=== PATIENT | female | born 1975 | race Caucasian/White ===

== ENCOUNTER 2022-03-12 17:06 | Inpatient (IN) ==
[2022-03-12] MEDS ORDERED: MORPHINE 2 MG/1 ML SYRINGE IV STA (19:41)
[2022-03-12] MEDS ORDERED: SODIUM CHLORIDE 0.9% 1,000 ML IV STA (19:41)
[2022-03-12] MEDS ORDERED: VANCOMYCIN INJ 1,250 MG in SODIUM CHLORIDE 0.9% 250 ML IV STA (19:41)
[2022-03-12] MEDS ORDERED: PIPERACILLIN/TAZOBACTAM 4.5 MG in SODIUM CHLORIDE 0.9% 100 ML IV STA (19:43)
[2022-03-12] MEDS ORDERED: PIPERACILLIN/TAZOBACTAM 4,500 MG in SODIUM CHLORIDE 0.9% 100 ML IV STA (19:52)
[2022-03-12 21:08] LABS: Urine Appearance Clear (Clear); Urine Color Yellow (Yellow)
[2022-03-12 21:09] LABS: Bilirubin,Urine Negative (Negative); Blood, Urine Negative (Negative); Glucose,Urine (UA) 500 mg/dL (Negative); Ketones,Urine Negative (Negative); Nitrite,Urine Negative (Negative); Protein,Urine Negative (Negative); Urine Specific Gravity 1.025 (1.001-1.035); Urine Urobilinogen 0.2 eU/dL (<2.0); Urine pH 5.5 (4.5-8.0)
[2022-03-12 21:14] LABS: Bacteria,Urine Occasional /HPF (Few); Mucus,Urine Occasional /LPF (Occasional); RBC,Urine 1 /HPF (0-4); Squamous Epithelial Cell,Urine Occasional /HPF (0-10)
[2022-03-12 21:31] LABS: Basophils % 0.4 % (0.0-0.8); Eosinophils # 0.7 10*3/uL (0.0-0.87); Eosinophils % 8.8 % (0.00-10.9); Hematocrit 38.1 VOL% (35.7-47.0); Hemoglobin 12.5 GM/DL (12.0-16.0); Immature Granulocytes % 0.8 %; Immature Granulocytes Absolute 0.06 #; Lymphocytes # 1.6 10*3/uL (1.4-4.0); Lymphocytes % 20.2 % (21.3-54.2); Mean Corpuscular HGB Conc 32.8 GM/DL (32-36); Mean Corpuscular Volume 91.6 FL (87-102); Mean Platelet Volume 9.2 FL (9.6-12.0); Monocytes # 0.9 10*3/uL (0.11-0.8); Monocytes % 10.9 % (1.7-12.7); Neutrophils % 58.9 % (38.7-73.9); Platelet Count 270 T/CUMM (130-400); Red Blood Count 4.16 MC/CUMM (3.8-5.5); Red Cell Distribution Width 13.9 % (9.3-17.3); White Blood Count 7.8 T/CUMM (4-12)
[2022-03-12 22:04] LABS: Osmolality,Calculated 277.3 MOS/KG (273-304); Potassium 4.4 MMOL/L (3.5-5.1)
[2022-03-12 22:06] LABS: Calcium 9.2 MG/DL (8.5-10.1)
[2022-03-12] MEDS ORDERED: DEXTROSE 50% 25 GM/50 ML SYRINGE IV ONE (22:12)
[2022-03-12] MEDS ORDERED: DEXTROSE 50% 25 GM/50 ML VIAL IV STA (22:41)
[2022-03-12] MEDS ORDERED: DEXTROSE 50% 25 GM/50 ML SYRINGE IV STA (22:43)
[2022-03-13] MEDS ORDERED: GLUCAGON 1 MG VIAL IM PRN (00:11)
[2022-03-13] MEDS ORDERED: ONDANSETRON 4 MG/2 ML VIAL IV PRN (00:11)
[2022-03-13] MEDS ORDERED: MELOXICAM 7.5 MG TABLET PO PRN (00:19)
[2022-03-13] MEDS ORDERED: DEXTROSE 10% 250 ML BAG IV PRN (00:22)
[2022-03-13 06:59] LABS: Basophils % 0.3 % (0.0-0.8); Eosinophils # 0.5 10*3/uL (0.0-0.87); Eosinophils % 7.8 % (0.00-10.9); Hemoglobin 13.7 GM/DL (12.0-16.0); Immature Granulocytes % 0.9 %; Immature Granulocytes Absolute 0.06 #; Lymphocytes # 1.3 10*3/uL (1.4-4.0); Lymphocytes % 19.5 % (21.3-54.2); Mean Corpuscular HGB Conc 32.6 GM/DL (32-36); Mean Corpuscular Volume 92.7 FL (87-102); Mean Platelet Volume 8.7 FL (9.6-12.0); Monocytes # 0.7 10*3/uL (0.11-0.8); Monocytes % 10.7 % (1.7-12.7); Neutrophils % 60.8 % (38.7-73.9); Platelet Count 246 T/CUMM (130-400); Red Blood Count 4.53 MC/CUMM (3.8-5.5); White Blood Count 6.6 T/CUMM (4-12)
[2022-03-13] MEDS: PIPERACILLIN/TAZOBACTAM 3,375 MG in SODIUM CHLORIDE 0.9% 100 ML IV SCH ×2 (07:01→13:07)
[2022-03-13 07:18] LABS: Alanine Aminotransferase 150 U/L (13-56); Albumin 2.8 G/DL (3.4-5.0); Alkaline Phosphatase 299 U/L (45-117); Aspartate Amino Transferase 185 U/L (0-37); Bilirubin,Total < 0.39 MG/DL (0.20-1.00); Blood Urea Nitrogen 7 MG/DL (7-18); Carbon Dioxide 24 MMOL/L (21-32); Chloride 109 MMOL/L (98-107); Glucose 70 MG/DL (74-106); Osmolality,Calculated 278.1 MOS/KG (273-304); Sodium 142 MMOL/L (136-145)
[2022-03-13] MEDS ORDERED: VANCOMYCIN INJ 1,000 MG in SODIUM CHLORIDE 0.9% 250 ML IV SCH (09:00)
[2022-03-13] MEDS: GABAPENTIN 300 MG CAPSULE PO SCH ×3 (09:02→20:54)
[2022-03-13] MEDS: valACYclovir 500 MG TABLET PO SCH ×2 (09:02→20:55)
[2022-03-13] MEDS: PANTOPRAZOLE 40 MG TABLET PO SCH (09:02)
[2022-03-13] MEDS: ENOXAPARIN 40 MG/0.4 ML SYRINGE SUBCUT SCH (09:03)
[2022-03-13] MEDS: VANCOMYCIN INJ 1,250 MG in SODIUM CHLORIDE 0.9% 250 ML IV SCH ×2 (09:03→22:12)
[2022-03-13] MEDS: diphenhydrAMINE CAP 25 MG CAPSULE PO PRN ×3 (11:01→22:16)
[2022-03-13] MEDS: ACETAMINOPHEN 325 MG TABLET PO PRN (16:25)
[2022-03-14] MEDS: PIPERACILLIN/TAZOBACTAM 3,375 MG in SODIUM CHLORIDE 0.9% 100 ML IV SCH ×2 (01:02→14:58)
[2022-03-14] MEDS: ACETAMINOPHEN 325 MG TABLET PO PRN (05:25)
[2022-03-14] MEDS: ENOXAPARIN 40 MG/0.4 ML SYRINGE SUBCUT SCH (08:29)
[2022-03-14] MEDS: valACYclovir 500 MG TABLET PO SCH ×2 (08:29→22:33)
[2022-03-14] MEDS: GABAPENTIN 300 MG CAPSULE PO SCH ×3 (08:29→22:33)
[2022-03-14] MEDS: PANTOPRAZOLE 40 MG TABLET PO SCH (08:29)
[2022-03-14] MEDS: VANCOMYCIN INJ 1,250 MG in SODIUM CHLORIDE 0.9% 250 ML IV SCH ×2 (10:20→23:22)
[2022-03-14] MEDS: INSULIN LISPRO 100 UNIT/ML CONTDEVICE SCH ×3 (14:33→22:35)
[2022-03-14] MEDS ORDERED: ALBUTEROL 2.5 MG/3 ML NEB RESP TX ONE (16:53)
[2022-03-14] MEDS: diphenhydrAMINE CAP 25 MG CAPSULE PO PRN (18:55)
[2022-03-15] MEDS: ACETAMINOPHEN 325 MG TABLET PO PRN (00:38)
[2022-03-15] MEDS: diphenhydrAMINE CAP 25 MG CAPSULE PO PRN ×3 (00:38→22:15)
[2022-03-15] MEDS: PIPERACILLIN/TAZOBACTAM 3,375 MG in SODIUM CHLORIDE 0.9% 100 ML IV SCH ×3 (01:54→15:45)
[2022-03-15 04:57] LABS: Basophils % 0.6 % (0.0-0.8); Eosinophils # 0.6 10*3/uL (0.0-0.87); Hematocrit 32.3 VOL% (35.7-47.0); Hemoglobin 10.2 GM/DL (12.0-16.0); Immature Granulocytes % 1.8 %; Immature Granulocytes Absolute 0.13 #; Lymphocytes % 27.7 % (21.3-54.2); Mean Corpuscular HGB Conc 31.6 GM/DL (32-36); Mean Corpuscular Volume 96.1 FL (87-102); Mean Platelet Volume 8.9 FL (9.6-12.0); Monocytes # 1.1 10*3/uL (0.11-0.8); Monocytes % 15.1 % (1.7-12.7); Neutrophils % 45.8 % (38.7-73.9); Platelet Count 239 T/CUMM (130-400); Red Blood Count 3.36 MC/CUMM (3.8-5.5)
[2022-03-15 05:22] LABS: Alanine Aminotransferase 49 U/L (13-56); Albumin 2.2 G/DL (3.4-5.0); Alkaline Phosphatase 134 U/L (45-117); Aspartate Amino Transferase 16 U/L (0-37); Bilirubin,Total < 0.39 MG/DL (0.20-1.00); Blood Urea Nitrogen 15 MG/DL (7-18); Calcium 8.3 MG/DL (8.5-10.1); Carbon Dioxide 27 MMOL/L (21-32); Chloride 111 MMOL/L (98-107); Glucose 115 MG/DL (74-106); Osmolality,Calculated 289.7 MOS/KG (273-304); Potassium 4.1 MMOL/L (3.5-5.1); Sodium 145 MMOL/L (136-145); Total Protein 5.3 G/DL (6.4-8.2)
[2022-03-15] MEDS ORDERED: ALBUTEROL 2.5 MG/3 ML NEB RESP TX ONE ×2 (06:00→07:00)
[2022-03-15] MEDS: valACYclovir 500 MG TABLET PO SCH ×2 (08:49→21:08)
[2022-03-15] MEDS: GABAPENTIN 300 MG CAPSULE PO SCH ×3 (08:49→21:08)
[2022-03-15] MEDS: PANTOPRAZOLE 40 MG TABLET PO SCH (08:49)
[2022-03-15] MEDS ORDERED: LACTATED RINGERS 1,000 ML IV SCH (09:30)
[2022-03-15] MEDS ORDERED: LIDOCAINE 2% 5 ML VIAL ONE (10:01)
[2022-03-15] MEDS ORDERED: ONDANSETRON 4 MG/2 ML VIAL ONE (10:01)
[2022-03-15] MEDS ORDERED: propofoL 200 MG/20 ML VIAL IV ONE (10:01)
[2022-03-15] MEDS ORDERED: fentaNYL 100 MCG/2 ML VIAL ONE (10:02)
[2022-03-15] MEDS ORDERED: SEVOFLURANE 1 UNIT/15 MINUTE INH ONE (10:02)
[2022-03-15] MEDS ORDERED: MIDAZOLAM 2 MG/2 ML VIAL ONE (10:02)
[2022-03-15] MEDS ORDERED: PHENYLEPHRINE 1 MG/10 ML SYRINGE IV ONE (10:22)
[2022-03-15] MEDS ORDERED: HYDROmorphone 1 MG/1 ML SYRINGE ONE (10:46)
[2022-03-15] MEDS ORDERED: ONDANSETRON 4 MG/2 ML VIAL IV PRN (10:47)
[2022-03-15] MEDS ORDERED: HYDROmorphone 1 MG/1 ML SYRINGE IV PRN (10:47)
[2022-03-15] MEDS: INSULIN LISPRO 100 UNIT/ML CONTDEVICE SCH ×4 (11:44→21:25)
[2022-03-15] MEDS: VANCOMYCIN INJ 1,250 MG in SODIUM CHLORIDE 0.9% 250 ML IV SCH ×2 (12:19→22:43)
[2022-03-16] MEDS: ACETAMINOPHEN 325 MG TABLET PO PRN (00:37)
[2022-03-16] MEDS: PIPERACILLIN/TAZOBACTAM 3,375 MG in SODIUM CHLORIDE 0.9% 100 ML IV SCH ×3 (02:49→18:05)
[2022-03-16] MEDS: MORPHINE 2 MG/1 ML SYRINGE IV PRN ×4 (02:55→23:08)
[2022-03-16 04:27] LABS: Basophils % 0.6 % (0.0-0.8); Eosinophils # 0.6 10*3/uL (0.0-0.87); Eosinophils % 8.8 % (0.00-10.9); Hematocrit 33.5 VOL% (35.7-47.0); Hemoglobin 10.7 GM/DL (12.0-16.0); Immature Granulocytes % 1.9 %; Immature Granulocytes Absolute 0.14 #; Lymphocytes # 2.3 10*3/uL (1.4-4.0); Lymphocytes % 31.9 % (21.3-54.2); Mean Corpuscular HGB Conc 31.9 GM/DL (32-36); Mean Corpuscular Volume 93.8 FL (87-102); Monocytes # 0.9 10*3/uL (0.11-0.8); Monocytes % 13.1 % (1.7-12.7); Neutrophils % 43.7 % (38.7-73.9); Platelet Count 256 T/CUMM (130-400); Red Blood Count 3.57 MC/CUMM (3.8-5.5); White Blood Count 7.2 T/CUMM (4-12)
[2022-03-16 05:01] LABS: Calcium 8.8 MG/DL (8.5-10.1); Osmolality,Calculated 288.7 MOS/KG (273-304); Potassium 4.2 MMOL/L (3.5-5.1)
[2022-03-16] MEDS: INSULIN LISPRO 100 UNIT/ML CONTDEVICE SCH ×4 (08:25→20:31)
[2022-03-16] MEDS: diphenhydrAMINE CAP 25 MG CAPSULE PO PRN ×4 (09:27→23:07)
[2022-03-16] MEDS: GABAPENTIN 300 MG CAPSULE PO SCH ×3 (09:27→20:30)
[2022-03-16] MEDS: PANTOPRAZOLE 40 MG TABLET PO SCH (09:27)
[2022-03-16] MEDS: valACYclovir 500 MG TABLET PO SCH ×2 (09:27→20:30)
[2022-03-16] MEDS: VANCOMYCIN INJ 1,250 MG in SODIUM CHLORIDE 0.9% 250 ML IV SCH (11:24)
[2022-03-17] MEDS: VANCOMYCIN INJ 1,250 MG in SODIUM CHLORIDE 0.9% 250 ML IV SCH (00:15)
[2022-03-17] MEDS: PIPERACILLIN/TAZOBACTAM 3,375 MG in SODIUM CHLORIDE 0.9% 100 ML IV SCH (03:30)
[2022-03-17] MEDS: PANTOPRAZOLE 40 MG TABLET PO SCH (09:10)
[2022-03-17] MEDS: GABAPENTIN 300 MG CAPSULE PO SCH (09:10)
[2022-03-17] MEDS: valACYclovir 500 MG TABLET PO SCH (09:10)
[2022-03-17] MEDS: ACETAMINOPHEN 325 MG TABLET PO PRN (09:13)
[2022-03-17] MEDS ORDERED: LEVOFLOXACIN 500 MG TABLET PO SCH (10:00)
[2022-03-17] MEDS ORDERED: MONTELUKAST 10 MG TABLET PO ONE (11:30)
[2022-03-17] MEDS: INSULIN LISPRO 100 UNIT/ML CONTDEVICE SCH (11:42)
[2022-03-17 12:11] VITALS: BP 110/69
[2022-03-17] MEDS ORDERED: FLUTICASONE 50 MCG NASAL SPRAY 16 GM BOTTLE BOTH NARES SCH (21:00)
[2022-03-18] MEDS ORDERED: MONTELUKAST 10 MG TABLET PO SCH (09:00)
== END 2022-03-17 13:42 | disposition home health service (06) | DRG 721 ==
LOC: N.ED 17:06 → N.EDINP 03-13 00:11 → N.TELEN 03-13 08:01
PROVIDERS: ADMIT Internal Medicine; ATTEND Internal Medicine